=== PATIENT | female | born 1990 | race Caucasian/White ===

== ENCOUNTER 2017-10-08 07:31 | Emergency (ER) | payer MEDICAID ==
[~2017-10-08] VITALS: Ht 160 cm; Wt 65.5 kg
[2017-10-08 07:48] VITALS: BP 107/57
--- NOTE | 2017-10-08 08:00 | NUR ---
PATIENT PRESENTS TO ED WITH c/o rhinorrhea, productive cough-yellow phlegm, x 6 days bilateral ear pain x last night---denies drainage exudate ---16 wks iup; OB hx---denies rx--- vitamins, robitussin, tylenol; DENIES N/V/D; SKIN IS PINK/WARM/DRY; AAOX4 WITH EVEN AND STEADY GAIT; LUNGS CLEAR BL; HR EVEN AND REGULAR; PT DENIES ANY FEVER, CP, SOB, OR COUGH AT THIS TIME; PATIENT STATES PAIN OF 8/10 AT THIS TIME; VSS; PATIENT POSITIONED FOR COMFORT; HOB ELEVATED; BEDRAILS UP X2; BED DOWN. ER MD MADE AWARE OF PT STATUS.
--- NOTE | 2017-10-08 08:02 | NUR ---
DR PACHECO EVALUATING AAO PT AT BEDSIDE
--- NOTE | 2017-10-08 08:25 | NUR ---
PT RT EAR IRRIGATED WITH 1/2 NS/HYDROGEN PEROXIDE; PROCEDURE TOLERATED WELL
[2017-10-08] MEDS ORDERED: ACETAMINOPHEN EXTRA STRENGTH 500 MG TAB PO ONE (08:45)
[2017-10-08 09:02] VITALS: BP 109/57
== END 2017-10-08 09:12 | disposition home or self-care (01) ==
LOC: MED 07:31
DX: O26.892 Other specified pregnancy related conditions, second trimester (principal); H66.92 Otitis media, unspecified, left ear; J06.9 Acute upper respiratory infection, unspecified; Z3A.16 16 weeks gestation of pregnancy
CPT/HCPCS: 99283

== ENCOUNTER 2017-10-25 15:20 | Emergency (ER) | payer MEDICAID ==
[~2017-10-25] VITALS: Ht 160 cm; Wt 66.5 kg
[2017-10-25 15:29] VITALS: BP 106/64
--- NOTE | 2017-10-25 15:36 | NUR ---
PATIENT TO OF
--- NOTE | 2017-10-25 15:45 | NUR ---
PATIENT PRESENTS TO ED WITH c/o productive cough, sore throat, head ache, rt ear pain;denies drainage on rt ear; 04/24 since 10/08/17; seen here in er on 10/08, prescribe amoxicillin and tussin with no relief; pt 19 weeks ;denie any medical hx;pt feeld nauseous but denies vomitting; SKIN IS PINK/WARM/DRY; AAOX4 WITH EVEN AND STEADY GAIT;HR EVEN AND REGULAR;PATIENT POSITIONED FOR COMFORT; ER MD MADE AWARE OF PT STATUS.
--- NOTE | 2017-10-25 16:11 | NUR ---
Sabrina preston in [facility] - 10/25/17 [address] CRUZ AT [facility].
--- NOTE | 2017-10-25 16:11 | NUR ---
DR CRUZ EVALUATING PT.
[2017-10-25 16:50] VITALS: BP 112/65
--- NOTE | 2017-10-25 16:50 | NUR ---
Patient discharged with v/s stable. Written and verbal after care instructions given and explained. Patient alert, oriented and verbalized understanding of instructions. Ambulatory with steady gait. All questions addressed prior to discharge. ID band removed. Patient advised to follow up with PMD. Rx of PROMETHAZINE given. Patient educated on indication of medication including possible reaction and side effects. Opportunity to ask questions provided and answered.
== END 2017-10-25 16:50 | disposition home or self-care (01) ==
LOC: MED 15:20
DX: O26.892 Other specified pregnancy related conditions, second trimester (principal); J06.9 Acute upper respiratory infection, unspecified
CPT/HCPCS: 99283

== ENCOUNTER 2018-02-05 03:52 | Observation (INO) | payer MEDICAID ==
[~2018-02-05] VITALS: Ht 160 cm; Wt 75.3 kg
[2018-02-05] MEDS ORDERED: TYLENOL 500 MG (06:17)
[2018-02-05] MEDS ORDERED: PREN-546 PO (06:17)
== END 2018-02-05 06:30 | disposition home or self-care (01) ==
LOC: MLD 03:52
PROVIDERS: ADMIT Obstetrics & Gynecology; ATTEND Obstetrics & Gynecology
DX: O26.893 Other specified pregnancy related conditions, third trimester (principal); R07.0 Pain in throat; H92.03 Otalgia, bilateral; Z3A.31 31 weeks gestation of pregnancy
CPT/HCPCS: 59025; 81000; G0378

== ENCOUNTER 2018-02-05 06:37 | Emergency (ER) | payer MEDICAID ==
[~2018-02-05] VITALS: Ht 160 cm; Wt 75.3 kg
[~2018-02-05 06:37] MED LIST: PREN-546 PO; TYLENOL 500 MG
[2018-02-05 06:39] VITALS: BP 126/83
--- NOTE | 2018-02-05 06:42 | NUR ---
PATIENT AMBULATED TO ER BED 11.
--- NOTE | 2018-02-05 06:57 | NUR ---
27Y/F C/O BL EAR PAIN AND HEADACHE. PT STATES SHE HAS BEEN SICK "WITH EVERYTHING" FOR 2 WEEKS W/ WORSENING PAIN THE LAST 4 DAYS. PT C/O SORETHROAT, HEADACHE, BL EAR PAIN, RUNNY NOSE, AND COUGH. RR EVEN, UNLABORED,BL BS CLEAR THROUGHOUT. PT IS 34 WEEKS , 4 PARA 3. PT DENIES N/V/D, VAGINAL BLEEDING/ DISCHARGE, OR ABD DISCOMFORT AT THIS TIME. PT IS CLEARED FROM L&D AND BROUGHT TO ED. PT AA&OX4, LAYING IN BED, MOTHER AT BEDSIDE, PT IN APPARENT DISTRESS AT THIS TIME. NO PMH, NKA. Addendum: 02/05/18 at 0707 by MEDWL PT TOOK TYLNOL AT 1130PM LAST NIGHT W/ MINIMAL RELIEF.
--- NOTE | 2018-02-05 07:13 | NUR ---
Pt report given to SHARON. Transfer of care at this time.
[2018-02-05 07:35] VITALS: BP 120/78
--- NOTE | 2018-02-05 07:35 | NUR ---
Patient discharged with v/s stable. Written and verbal after care instructions given and explained. Patient alert, oriented and verbalized understanding of instructions. Ambulatory with steady gait. All questions addressed prior to discharge. ID band removed. Patient advised to follow up with PMD. Rx of SUDAFED given. Patient educated on indication of medication including possible reaction and side effects. Opportunity to ask questions provided and answered.
--- NOTE | 2018-02-07 13:37 | NUR ---
PATIENT THROAT CULTURE RETURNED AT THIS TIME. NEGATIVE FOR ALL STREP AND PATHOGENS. NO FURTHER ACTION TAKEN.
== END 2018-02-05 07:35 | disposition home or self-care (01) ==
LOC: MED 06:37
DX: O99.513 Diseases of the respiratory system complicating pregnancy, third trimester (principal); J06.9 Acute upper respiratory infection, unspecified; Z3A.34 34 weeks gestation of pregnancy
CPT/HCPCS: 36415; 87081; 87804; 99284

== ENCOUNTER 2018-08-26 00:46 | Emergency (ER) | payer MEDICAID ==
[~2018-08-26] VITALS: Ht 157.5 cm; Wt 66.2 kg
[2018-08-26 00:52] VITALS: BP 123/56
[2018-08-26] MEDS ORDERED: NACL 0.9% 1,000 ML IV SCH (01:06)
[2018-08-26] MEDS ORDERED: MORPHINE SULFATE 2 MG/ML SYR IVP ONE (01:10)
[2018-08-26] MEDS ORDERED: ONDANSETRON 4 MG/2 ML VIAL IVP ONE (01:10)
[2018-08-26] MEDS ORDERED: ONDANSETRON 4 MG/2 ML VIAL ONE (01:22)
[2018-08-26] MEDS ORDERED: MORPHINE SULFATE 4 MG/ML SYR ONE ×2 (01:22→01:38)
[2018-08-26 01:31] LABS: HEMATOCRIT 45.4 % (36-48); HEMOGLOBIN 15.1 g/dL (12.0-16.0); MEAN CORPUSCULAR HEMOGLOBIN 29 pg (27-31); MEAN CORPUSCULAR HGB CONC 33 g/dL (33-37); MEAN CORPUSCULAR VOLUME 87.6 fL (80-94); PLATELET COUNT (AUTO) 364 K/uL (140-450); RED BLOOD CELL COUNT(AUTO) 5.19 MIL/uL (4.20-5.40); RED CELL DISTRIBUTION WIDTH 12.7 % (11.6-13.7); WHITE BLOOD COUNT (AUTO) 21.1 K/uL (4.8-10.8)
[2018-08-26 02:02] LABS: LYMPHOCYTES % (MANUAL) 7 % (20-46); MONOCYTES % (MANUAL) 4 % (5-12)
[2018-08-26 02:03] LABS: POTASSIUM 4.1 mmol/L (3.5-5.1)
[2018-08-26 02:04] LABS: ALBUMIN 4.1 g/dL (3.4-5.0); ANION GAP 13.3 (8-16); CARBON DIOXIDE 28.8 mmol/L (21-32); CREATININE 0.8 mg/dL (0.6-1.3); TOTAL BILIRUBIN 0.8 mg/dL (0.0-1.0)
[2018-08-26 02:35] LABS: APPEARANCE,URINE SLIGHTLY HAZY (CLEAR); COLOR,URINE YELLOW (YELLOW)
[2018-08-26 02:36] LABS: BILIRUBIN,URINE NEGATIVE (NEGATIVE); BLOOD, URINE NEGATIVE (NEGATIVE); LEUKOCYTE ESTERASE ,URINE NEGATIVE (NEGATIVE); NITRITE, URINE NEGATIVE (NEGATIVE); UGLUCOSE NEGATIVE (NEGATIVE)
[2018-08-26 02:38] LABS: RBC,URINE 0-5 (RARE) /HPF (0-5)
[2018-08-26 03:31] VITALS: BP 129/78
== END 2018-08-26 03:31 | disposition home or self-care (01) ==
LOC: MED 00:46
DX: N39.0 Urinary tract infection, site not specified (principal); Z79.899 Other long term (current) drug therapy
CPT/HCPCS: 36415; 80053; 81001; 81025; 82150; 83690; 84703; 85025; 87086; 96361; 96374; 96375; 99285; J2270; J2405; J7030

== ENCOUNTER 2021-01-08 23:56 | Emergency (ER) | payer MEDICAID, OTHER ==
[~2021-01-08] VITALS: Ht 160 cm; Wt 60.3 kg
[2021-01-09 00:02] VITALS: BP 119/85
--- NOTE | 2021-01-09 00:08 | NUR ---
PT AMBULATED TO BED #12
[2021-01-09] MEDS ORDERED: PROCHLORPERAZINE 10 MG/2 ML VIAL IM ONE (00:20)
[2021-01-09] MEDS ORDERED: KETOROLAC 60 MG/2 ML VIAL IM ONE (00:20)
[2021-01-09] MEDS ORDERED: diphenhydrAMINE 50 MG/ML VIAL IM ONE (00:20)
--- NOTE | 2021-01-09 00:27 | NUR ---
ERMD AT BEDSIDE EXAMINING PT
--- NOTE | 2021-01-09 00:30 | NUR ---
30 Y/O FEMALE CAME TO THE ED WITH 10/ HEADACHE AND VOMITINGX4 TODAY. DENIES N/V/D; SKIN IS PINK/WARM/DRY; AAOX4 WITH EVEN AND STEADY GAIT; LUNGS CLEAR BL; HR EVEN AND REGULAR; PT DENIES ANY FEVER, CP, SOB, OR COUGH AT THIS TIME; VSS; PATIENT POSITIONED FOR COMFORT; HOB ELEVATED; BEDRAILS UP X2; BED DOWN. ER MD MADE AWARE OF PT STATUS. PMH: DENIES NKA
[2021-01-09 01:07] VITALS: BP 119/85
--- NOTE | 2021-01-09 01:07 | NUR ---
Patient discharged with v/s stable. Written and verbal after care instructions given and explained. Patient verbalized understanding. Ambulatory with steady gait. All questions addressed prior to discharge. Advised to follow up with PMD.
== END 2021-01-09 01:07 | disposition home or self-care (01) ==
LOC: MED 23:56
DX: R51.9 Headache, unspecified (principal)
CPT/HCPCS: 81025; 96372; 99284; J0780; J1200; J1885

== ENCOUNTER 2021-02-16 18:57 | Inpatient (IN) | payer OTHER, SELFPAY ==
[~2021-02-16] VITALS: Ht 160 cm; Wt 56.7 kg
[2021-02-16 19:23] VITALS: BP 101/42
--- NOTE | 2021-02-16 20:02 | NUR ---
30 Y/O FEMALE CAME TO ED C/O LOWER BACK PAIN. PT STATES 9/10 PAIN, AND "FEELS WARM AND BURNING I PEE". PT STATES THAT SHE ALSO HAS NAUSEA/VOMITTING, DIARRHEA, FEVER. SKIN IS PINK/WARM/DRY; AAOX4 WITH EVEN AND STEADY GAIT; LUNGS CLEAR BL; HR EVEN AND REGULAR; PT DENIES ANY CP, SOB, OR COUGH AT THIS TIME; PATIENT POSITIONED FOR COMFORT; HOB ELEVATED; BEDRAILS UP X2; BED DOWN. ER MD MADE AWARE OF PT STATUS. NKA PMH: DENIES
[2021-02-16] MEDS ORDERED: NACL 0.9% 1,000 ML IV ONE ×2 (20:05→22:45)
[2021-02-16] MEDS ORDERED: ONDANSETRON 4 MG/2 ML VIAL IVP ONE (20:05)
[2021-02-16] MEDS ORDERED: KETOROLAC 30 MG/ML VIAL IVP ONE (20:05)
[2021-02-16 20:20] LABS: APPEARANCE,URINE CLEAR (CLEAR); BILIRUBIN,URINE 1+ (NEGATIVE); BLOOD, URINE 1+ (NEGATIVE); COLOR,URINE YELLOW (YELLOW); LEUKOCYTE ESTERASE ,URINE 1+ (NEGATIVE); NITRITE, URINE NEGATIVE (NEGATIVE); UGLUCOSE NEGATIVE (NEGATIVE)
[2021-02-16 20:27] LABS: HEMATOCRIT 39.3 % (36-48); HEMOGLOBIN 13.1 g/dL (12.0-16.0); MEAN CORPUSCULAR HEMOGLOBIN 29 pg (27-31); MEAN CORPUSCULAR HGB CONC 33 g/dL (33-37); MEAN CORPUSCULAR VOLUME 87.9 fL (80-94); PLATELET COUNT (AUTO) 281 K/uL (140-450); RED BLOOD CELL COUNT(AUTO) 4.46 MIL/uL (4.20-5.40); RED CELL DISTRIBUTION WIDTH 13.3 % (11.6-13.7); WHITE BLOOD COUNT (AUTO) 23.8 K/uL (4.8-10.8)
[2021-02-16 20:36] LABS: WBC,URINE 16-25 (MOD) /HPF (0-5)
[2021-02-16 20:44] LABS: LYMPHOCYTES % (MANUAL) 6 % (20-46); MONOCYTES % (MANUAL) 6 % (5-12)
[2021-02-16 20:50] LABS: ALBUMIN 3.5 g/dL (3.4-5.0); ANION GAP 14.2 (8-16); CARBON DIOXIDE 23.9 mmol/L (21-32); CREATININE 0.9 mg/dL (0.6-1.3); POTASSIUM 3.1 mmol/L (3.5-5.1); TOTAL BILIRUBIN 1.4 mg/dL (0.0-1.0)
[2021-02-16] MEDS ORDERED: cefTRIAXone 1,000 MG VIAL ONE ×2 (20:51→21:00)
--- NOTE | 2021-02-16 21:07 | NUR ---
PT TAKEN TO CT
--- NOTE | 2021-02-16 22:37 | NUR ---
COLLECTED CALEB SWAB AND SENT TO LAB, HANDED TO CPT HEMA
[2021-02-16] MEDS ORDERED: MORPHINE SULFATE 4 MG/ML SYR IVP ONE (22:45)
[2021-02-16] MEDS ORDERED: KCL 20 MEQ/WATER INJ PREMIX 100 ML IV ONE (23:30)
[2021-02-16] MEDS ORDERED: MORPHINE SULFATE 2 MG/ML SYR IVP PRN (23:55)
--- NOTE | 2021-02-17 01:04 | NUR ---
SPOKE W/ OPAL FROM ALLIED , INVESTIGATIONS MANAGER, UPDATED HER ON PT CLINICALS. PER OPAL OKAY TO ADMIT PATIENT.
--- NOTE | 2021-02-17 01:10 | NUR ---
RECEIVED CALL FROM ER NURSE FOR REPORT. WAITING PATIENT ARRIVE TO UNIT.
--- NOTE | 2021-02-17 01:15 | NUR ---
Patient will be admitted to care of DR. PARRISH. [facility]. Will go to room 105A. Belongings list completed. Report to PATRICIA HARDIN.
[2021-02-17 01:30] VITALS: BP 101/56
--- NOTE | 2021-02-17 01:30 | NUR ---
PATIENT ARRIVED UNIT BY WHEELCHAIR. PATIENT AMBULATES TO BED WITH STEADY GAIT INDEPENDENTLY. DX PYELONEPHRITIS. C/C RIGHT FLANK PAIN, FEVER, N/V AND DIARRHEA. ADMIT TO MED SURG UNIT. PATIENT A/A/O X4. RESPIRATORY EVEN AND UNLABORED, ON ROOM AIR, NO SIGN OF RESPIRATORY DISTRESS NOTED, LUNG SOUNDS CLEAR TO AUSCULTATES TO ALL LOBES. ABDOMEN SOFT, NON-TENDER, BOWEL SOUND ACTIVE, LAST BM WAS YESTERDAY WITH DIARRHEA. SKIN WARM, DRY, INTACT, NON-DIAPHORETIC. IV ON LEFT AC 20G, INTACT AND PATENT, IS INFUSING FLUID. PATIENT DENIES ANY PAIN OR DISCOMFORT AT THIS TIME. ABLE TO MAKE NEEDS KNOWN. VS TAKEN. MRSA SWAB COLLECTED. ORIENTED TO UNIT AND ROOM. PLAN OF CARE DISCUSSED. PATIENT VERBALIZED UNDERSTANDING. CALL LIGHT WITHIN REACH. WILL CONTINUE TO MONITOR.
[2021-02-17] MEDS: NACL 0.9% 1,000 ML IV SCH ×3 (03:55→17:13)
[2021-02-17 04:00] VITALS: BP 109/64
--- NOTE | 2021-02-17 04:00 | NUR ---
ROUND CHECK. PATIENT IS SLEEPING, CHEST RISE AND FALL NOTED. NO SIGN OF DISTRESS NOTED. CALL LIGHT WITHIN REACH. WILL CONTINUE TO MONITOR.
[2021-02-17] MEDS: ACETAMINOPHEN 325 MG TAB PO PRN ×2 (05:17→13:53)
--- NOTE | 2021-02-17 05:17 | NUR ---
TYLENOL PRN GIVEN WITH EDUCATION FOR FEVER AND PAIN. PATIENT VERBALIZED UNDERSTANDING. PATIENT TOLERATED WELL. CALL LIGHT WITHIN REACH. WILL CONTINUE TO MONITOR.
--- NOTE | 2021-02-17 06:17 | NUR ---
PAIN RE ASSESSMENT. PATIENT REPORTS PAIN DOES NOT REDUCE. WILL CONTACT MD FOR ANOTHER PAIN MEDICATION SINCE PATIENT BLOOD PRESSURE IS LOW.
[2021-02-17 06:34] LABS: MAGNESIUM 1.7 mg/dL (1.8-2.4); PHOSPHORUS 1.5 mg/dL (2.5-4.9)
[2021-02-17 06:37] LABS: ANION GAP 12.3 (8-16); CARBON DIOXIDE 23.3 mmol/L (21-32); CREATININE 0.8 mg/dL (0.6-1.3); POTASSIUM 3.6 mmol/L (3.5-5.1)
--- NOTE | 2021-02-17 06:40 | NUR ---
PAGED MD TO NOTIFY PATIENT CONDITION. WAITING FOR CALL BACK.
--- NOTE | 2021-02-17 06:45 | NUR ---
RECEIVED CALL FROM DR GOODMAN, TORADOL 15MG IVP Q6H PRN FOR PAIN. READ BACK ORDER. WILL FOLLOW ORDER.
[2021-02-17 06:53] LABS: HEMOGLOBIN 11.4 g/dL (12.0-16.0); MEAN CORPUSCULAR HEMOGLOBIN 29 pg (27-31); MEAN CORPUSCULAR HGB CONC 33 g/dL (33-37); MEAN CORPUSCULAR VOLUME 89.7 fL (80-94); PLATELET COUNT (AUTO) 241 K/uL (140-450); RED CELL DISTRIBUTION WIDTH 13.6 % (11.6-13.7); WHITE BLOOD COUNT (AUTO) 17.7 K/uL (4.8-10.8)
[2021-02-17 06:59] LABS: LYMPHOCYTES % (MANUAL) 6 % (20-46); MONOCYTES % (MANUAL) 6 % (5-12)
--- NOTE | 2021-02-17 07:05 | NUR ---
ENDORSED PATIENT TO AM NURSE FOR CONTINUITY OF CARE. PATIENT IS STABLE. COMPLAINS OF PAIN, ENDORSED TO AM NURSE REGARDING NEW ORDER TORADOL PRN FOR PAIN.
--- NOTE | 2021-02-17 07:05 | NUR ---
REC'D REPORT FROM FINANCIAL MARKET DEALER NURSE, PT A/OX4, KOREAN SPEAKING, RA. AMBULATORY, LUNGS CLEAR, ABD SOFT, NONTENDER. R. FLANK TENDER.NO EDEMA NOTED ON EXTREMITIES. R.AC 20G INFUSING NS AT 125M;/HR, NO SIGN OF PHLEBITIS, DRY, CLEAN , PATENT. PT C/O PAIN, WILL MEDICATE. ALL SAFETY MEASURES IN PLACE. WILL CONTINUE TO MONITOR
[2021-02-17] MEDS: KETOROLAC 15 MG/ML VIAL IVP PRN ×2 (07:52→16:51)
--- NOTE | 2021-02-17 07:55 | NUR ---
ADMINISTERED ANALGESIC PER MD ORDER, MOA AND SIDE EFFECTS DISCUSSED WITH PT WHO VERBALIZED UNDERSTANDING. IV SITE DRY, CLEAN, INTACT, PATENT. WILL CONTINUE TO MONITOR
[2021-02-17 08:00] VITALS: BP 103/62
--- NOTE | 2021-02-17 08:33 | NUR ---
DC PLANNIN YRS OLD FEMALE PATIENT WAS ADMITTED FROM HOME WITH A DX OF PYELONEPHRITIS. PT HAS A HX OF COVID AND RECEIVED COVID VACCINE. CT ABD SHOWED NO OBSTRUCTIVE UROPATHY, HEPATOMEGALY. RAPID COVID TEST NEGATIVE. WBC 23.8 ADMINISTERED IVF, IV ABX ROCEPHIN AND TORADOL IV FOR PAIN. WBC WENT DOWN TO 17.7 . DC PLAN TO GO HOME WHEN STABLE CM TO FOLLOW Addendum: 02/18/21 at 1141 by Juju Moreno CM DC PROCESSING SUPERVISOR: CALLED TO SCHEDULE PATIENT A FOLLOW UP APPOINTMENT WITH PCP BESSIE HARRISON [phone], HOWEVER THEY STATED THE PATIENT HAS TO CALL THEMSELVES TO SCHEDULE.
--- NOTE | 2021-02-17 08:55 | NUR ---
PATIENT HAS BEEN SCREENED AND CATEGORIZED HIGH NUTRITION RISK. PATIENT WILL BE SEEN WITHIN 1-2 DAYS OF ADMISSION. FNS REFERRAL WAS RECEIVED FOR NAUSEA AND DIARRHEA >3 DAYS. 02/17/21-02/18/[address]
[2021-02-17] MEDS: ENOXAPARIN 30 MG/0.3 ML SYR SUBQ SCH (09:48)
--- NOTE | 2021-02-17 11:00 | NUR ---
PATIENT SITTING ON BED AND TAKING ON PHONE WITH FAMILY MEMBER .PATIENT VERBALIZED NO NEED AT THIS TIME WILL CONTINUE TO MONITOR PATIENT.
--- NOTE | 2021-02-17 13:38 | NUR ---
RECOMMENDED BLAND DIET, RECEIVED TORB FROM DR. GALLEGOS FOR BLAND DIET.
[2021-02-17] MEDS: ONDANSETRON 4 MG/2 ML VIAL IVP PRN (13:48)
--- NOTE | 2021-02-17 13:54 | NUR ---
02/17/21 RD INITIAL ASSESSMENT COMPLETED PLEASE REFER TO NUTRITION ASSESSMENT UNDER CARE ACTIVITY FOR ESTIMATED NUTRITIONAL NEEDS. 1. RECOMMENDED BLAND DIET TOLERATED 2. ENCOURAGE PO INTAKE OVER 75% 3. RD TO FOLLOW-UP 3-5 DAYS, MODERATE RISK PHI REES, RD
[2021-02-17 16:00] VITALS: BP 107/61
--- NOTE | 2021-02-17 16:55 | NUR ---
TORADOL 1 ML ADMINISTER PRE MD ORDERED FOR HEADACHE 06/25. PATIENT TOLERATED WELL . WILL CONTINUE TO MONITOR PATIENT .
--- NOTE | 2021-02-17 19:39 | NUR ---
ENDORSED PT TO [facility] SHIFT NURSE, PT STABLE, NO SIGN OF DISTRESS.
--- NOTE | 2021-02-17 19:40 | NUR ---
RECD. RESTING IN BED, AWAKE, A/OX4. RESPIRATION EVEN AND UNLABORED. IV OF NS AT 75 ML/HR INFUSING, LEFT AC G20. AMBULATORY TO THE BR. AWARE OF PLAN TO MEASURE ACCURATELY INTAKE AND OUTPUT. MEDICATIONS AND PLAN OF CARE FOR THE SHIFT DISCUSSED. VERBALIZED UNDERSTANDING. DENIES PAIN 0/10.
[2021-02-17 20:00] VITALS: BP 110/60
--- NOTE | 2021-02-17 20:00 | NUR ---
PATIENTS' PLAN OF CARE WAS REVIEWED AND DISCUSSED WITH DIRECTOR DATA ARCHITECTURE: LORRIE KARIMI
--- NOTE | 2021-02-17 21:00 | NUR ---
RESTING IN BED, WARM BLANKETS GIVEN REQUESTED.
[2021-02-17] MEDS: HYDROcodone/APAP 5/325 MG 1 TAB TAB PO PRN (22:52)
--- NOTE | 2021-02-17 22:52 | NUR ---
FEELING COLD, TEMPERATURE CHECKED - 99.7 F. WITH BACK PAIN 03/25, MEDICATION GIVEN PER MD ORDER.
[2021-02-18] VITALS: BP 116/71
[2021-02-18] MEDS ORDERED: ZOLPIDEM 5 MG TAB PO PRN (01:15)
--- NOTE | 2021-02-18 02:08 | NUR ---
UNABLE TO SLEEP, MEDICATED WITH AMBIEN PER MD ORDER.
--- NOTE | 2021-02-18 03:08 | NUR ---
SLEEPING COMFORTABLY IN BED.
[2021-02-18 04:00] VITALS: BP 126/77
--- NOTE | 2021-02-18 05:00 | NUR ---
REMAIN AFEBRILE, TEMPERATURE - 98.2 F.
--- NOTE | 2021-02-18 06:00 | NUR ---
STILL SLEEPING COMFORTABLY IN BED.
[2021-02-18 06:06] LABS: ANION GAP 8.5 (8-16); CARBON DIOXIDE 25.2 mmol/L (21-32); CREATININE 0.6 mg/dL (0.6-1.3); POTASSIUM 3.7 mmol/L (3.5-5.1)
[2021-02-18 06:11] LABS: BASOPHILS % (AUTO) 0.2 % (0.0-2.0); EOSINOPHILS # (AUTO) 0.1 K/uL (0-0.4); EOSINOPHILS % (AUTO) 0.7 % (0.0-4.0); HEMOGLOBIN 10.4 g/dL (12.0-16.0); LYMPHOCYTES # (AUTO) 1.9 K/uL (2.5-16.5); LYMPHOCYTES % (AUTO) 15.8 % (20.5-51.1); MEAN CORPUSCULAR HEMOGLOBIN 30 pg (27-31); MEAN CORPUSCULAR HGB CONC 34 g/dL (33-37); MEAN CORPUSCULAR VOLUME 87.7 fL (80-94); MONOCYTES # (AUTO) 1.2 K/uL (0.8-1.0); MONOCYTES % (AUTO) 10.4 % (1.7-9.3); NEUTROPHILS # (AUTO) 8.7 K/uL (1.8-7.7); NEUTROPHILS % (AUTO) 72.9 % (42.2-75.2); PLATELET COUNT (AUTO) 222 K/uL (140-450); RED BLOOD CELL COUNT(AUTO) 3.54 MIL/uL (4.20-5.40); RED CELL DISTRIBUTION WIDTH 13.4 % (11.6-13.7); WHITE BLOOD COUNT (AUTO) 11.9 K/uL (4.8-10.8)
--- NOTE | 2021-02-18 07:15 | NUR ---
NO FEVER NOTED DURING THE SHIFT. COMPLAINT OF BACK PAIN ATTENDED PROMPTLY, MEDICATED PER MD ORDER. ENDORSED TO AM SHIFT NURSE FOR CONTINUITY OF CARE.
[2021-02-18 08:00] VITALS: BP 135/87
[2021-02-18] MEDS: NACL 0.9% 1,000 ML IV SCH ×2 (08:47→22:27)
[2021-02-18] MEDS: ACETAMINOPHEN 325 MG TAB PO PRN (09:06)
[2021-02-18] MEDS: HYDROcodone/APAP 5/325 MG 1 TAB TAB PO PRN (09:06)
[2021-02-18] MEDS: ENOXAPARIN 30 MG/0.3 ML SYR SUBQ SCH (09:15)
--- NOTE | 2021-02-18 09:15 | NUR ---
PT WAS GIVEN THE SCHEDULED AM MEDICATIONS NOW, VIA SUBQ ON THE RT DELTOID AND ORAL, WAS MEDICATED WELL FOR C/O PAIN OF 03/25, WILL RE-ASSESS AND MONITOR PT.
--- NOTE | 2021-02-18 09:45 | NUR ---
ULTRASOUND OF THE GALLBLADDER IS BEING DONE TO PT NOW.
--- NOTE | 2021-02-18 10:44 | NUR ---
PT WAS STARTED ON MAGNESIUM RIDER IV NOW FOR MG LEVEL OF 1.7
[2021-02-18] MEDS ORDERED: MAG SULF 2000 MG/WATER PREMIX 50 ML IV SCH (11:00)
[2021-02-18] MEDS: IBUPROFEN 600 MG TAB PO SCH ×2 (11:14→17:45)
--- NOTE | 2021-02-18 11:14 | NUR ---
SCHEDULED IBUPROFEN WAS GIVEN TO PT NOW.
--- NOTE | 2021-02-18 11:52 | NUR ---
SOCIAL WORK NOTE: Patient's Orientation Unable To Assess Information Provided By BERT CHILD - Comments SW WAS UNABLE TO MEET PATIENT AT BEDSIDE. SW COMPLETED ASSESSMENT WITH PATIENT'S . SW USED COURT WORKER TIM [id number]. Evaluator, Realtionship and Phone Number BERT CHILD [phone] Healthcare Power of Checking Clerk No Does Patient Have a POLST No Identifying Problems No Social Work Triggers Is A Social Work Consult Needed No Mandate Report Filed No Explanation Of Identifying Problems PATIENT IS A 30-YEAR-OLD MALE ADMITTED FOR PYELONEPHRITIS. PATIENT HAS NO REPORTED PMHX. REPORTED NO HX OR MENTAL HEALTH OR SUBSTANCE ABUSE HX. Admitted From Home Pre-Admission Level Of Functioning Status Independent/Ambulatory Prior Resources/Services Used In Last 12 Months No Prior Resources Used Prior DME No Prior DME Used Dialysis Comments N/A Living Situation Lives With Family House Patient Had Caregiver No Home Support No Caregiver Issues Financial Issues No Known Financial Issue Referral To The Financial Counselor Needed No Factors/Needs No D/C Needs Identified Pt/Rep Participated In Discharge Plan Yes Patient/Family Agress With Discharge Plan Yes Discharge Plan Comments TENTATIVE DISCHARGE PLAN IS FOR PATIENT TO RETURN HOME. DC Plan Status Initiated
--- NOTE | 2021-02-18 13:33 | NUR ---
PT IS RESTING NOW, SEATED ON THE BED AND TALKING ON HER CP.
--- NOTE | 2021-02-18 17:46 | NUR ---
PT WAS GIVEN THE SCHEDULED MEDICATION, WILL MONITOR P,T.
--- NOTE | 2021-02-18 19:20 | NUR ---
ENDORSED PT TO COUNSELING AIDE NURSE FOR CONTINUITY OF CARE.
[2021-02-18 20:00] VITALS: BP 107/71
--- NOTE | 2021-02-18 20:00 | NUR ---
PATIENT WAS RECEIVED ALERT AND COHERENT SPEAKS BOT JAPANESE AND SRI LANKAN, DENIES PAIN AT THIS TIME, NO S/S OF DISTRESS.
--- NOTE | 2021-02-18 20:20 | NUR ---
RN MADE A VISIT IN 105 B PATIENT, BED A PATIENT WAS OBSERVED TO BE ALERT AND COHERENT, ABLE TO SPEAK NEEDS , HELPED RN TO TRANSLATE VIETNAMESE TO [place] AND VISE [place] WITH PATIENT IN BED B.
--- NOTE | 2021-02-18 20:40 | NUR ---
PATIENT ASSESSMENT WAS DONE VITAL SIGNS WNL
--- NOTE | 2021-02-18 21:00 | NUR ---
RN ADMINISTER THE DUE MEDICATION, ROCEPHIN 1GM IVPB
--- NOTE | 2021-02-18 22:15 | NUR ---
PATIENT C/O OF PRESSURE PAIN IN HER HEAD AND LOWER BACK 04/24
[2021-02-18] MEDS: KETOROLAC 15 MG/ML VIAL IVP PRN (22:20)
--- NOTE | 2021-02-18 22:21 | NUR ---
TORADOL 15 MG IVP WAS GIVEN
--- NOTE | 2021-02-19 00:45 | NUR ---
RN MADE HIS MIDNIGHT ROUND PATIENT WAS CALMLY ASLEEP NO S/S OF DISTRESS.
[2021-02-19 04:00] VITALS: BP 137/88
[2021-02-19] MEDS: KETOROLAC 15 MG/ML VIAL IVP PRN ×2 (05:43→12:08)
[2021-02-19] MEDS: HYDROcodone/APAP 5/325 MG 1 TAB TAB PO PRN (06:24)
[2021-02-19 06:28] LABS: BASOPHILS % (AUTO) 0.3 % (0.0-2.0); EOSINOPHILS # (AUTO) 0.1 K/uL (0-0.4); EOSINOPHILS % (AUTO) 1.2 % (0.0-4.0); HEMATOCRIT 33.1 % (36-48); HEMOGLOBIN 11.2 g/dL (12.0-16.0); LYMPHOCYTES # (AUTO) 1.6 K/uL (2.5-16.5); LYMPHOCYTES % (AUTO) 21.4 % (20.5-51.1); MEAN CORPUSCULAR HEMOGLOBIN 30 pg (27-31); MEAN CORPUSCULAR HGB CONC 34 g/dL (33-37); MEAN CORPUSCULAR VOLUME 88.6 fL (80-94); MONOCYTES # (AUTO) 0.8 K/uL (0.8-1.0); MONOCYTES % (AUTO) 10.2 % (1.7-9.3); NEUTROPHILS # (AUTO) 5.1 K/uL (1.8-7.7); NEUTROPHILS % (AUTO) 66.9 % (42.2-75.2); PLATELET COUNT (AUTO) 295 K/uL (140-450); RED BLOOD CELL COUNT(AUTO) 3.74 MIL/uL (4.20-5.40); RED CELL DISTRIBUTION WIDTH 13.5 % (11.6-13.7); WHITE BLOOD COUNT (AUTO) 7.6 K/uL (4.8-10.8)
[2021-02-19 07:07] LABS: ALBUMIN 2.5 g/dL (3.4-5.0); ANION GAP 9.6 (8-16); CARBON DIOXIDE 25.6 mmol/L (21-32); CREATININE 0.5 mg/dL (0.6-1.3); MAGNESIUM 2.3 mg/dL (1.8-2.4); POTASSIUM 3.2 mmol/L (3.5-5.1); TOTAL BILIRUBIN 0.3 mg/dL (0.0-1.0)
--- NOTE | 2021-02-19 07:54 | NUR ---
REPORTS WERE GIVEN TO INCOMING RN, CARE OF PATIENT WAS ENDORSED.
--- NOTE | 2021-02-19 08:10 | NUR ---
PATIENT IS AOX4, RESPIRATIONS EVEN AND UNLABORED ON ROOM AIR, VITAL SIGNS STABLE. PATIENT REPORTS PAIN IS TOLERABLE AT THIS TIME. IV FLUIDS INFUSING. TOLERATING BLAND DIET WELL WITH NO NAUSEA/VOMITING. REPORTS FEELING CONSTIPATED, LAST BM 02/16. URINATING FREELY WITH NO COMPLAINTS OF PAIN. SKIN IS INTACT. UPDATED PATIENT ON PLAN OF CARE. WILL CONTINUE TO MONITOR.
[2021-02-19] MEDS: IBUPROFEN 600 MG TAB PO SCH ×2 (08:59→12:00)
[2021-02-19] MEDS: ENOXAPARIN 30 MG/0.3 ML SYR SUBQ SCH (09:00)
--- NOTE | 2021-02-19 09:15 | NUR ---
SPOKE TO DR. GALLEGOS. NOTIFIED OF POTASSIUM 3.2 AND C/O CONSTIPATION. RECEIVED ORDERS.
[2021-02-19] MEDS ORDERED: POTASSIUM CHLORIDE 10 MEQ TABER PO SCH (10:00)
[2021-02-19] MEDS ORDERED: LACTULOSE 20 GM/30 ML UDC PO SCH (10:00)
[2021-02-19] MEDS ORDERED: IBUP-2213 PO (10:33)
[2021-02-19] MEDS ORDERED: CEPH500C16 PO (10:33)
[2021-02-19] MEDS: ONDANSETRON 4 MG/2 ML VIAL IVP PRN (12:05)
[2021-02-19] MEDS: NACL 0.9% 1,000 ML IV SCH (12:07)
--- NOTE | 2021-02-19 12:15 | NUR ---
PATIENT C/O NAUSEA AND VOMITING. PRN ZOFRAN GIVEN. REPORTS PAIN IN RIGHT FLANK RATED 7/10. PRN MEDICATION GIVEN.
[2021-02-19 12:27] VITALS: BP 119/80
[2021-02-19] MEDS ORDERED: ACET-8386 PO (12:32)
--- NOTE | 2021-02-19 13:20 | NUR ---
PATIENT REPORTS FEELING "MUCH BETTER". SITTING UP IN BED EATING SANDWICH, TOLERATING WELL WITH NO NAUSEA/VOMITING. PAIN IS WELL UNDER CONTROL AT THIS TIME.
--- NOTE | 2021-02-19 14:20 | NUR ---
DISCHARGE PAPERWORK REVIEWED WITH PATIENT, PATIENT UNDERSTANDS NEW MEDICATIONS/SIDE EFFECTS/ SIGNS AND SYMPTOMS TO WATCH OUT FOR. IV REMOVED WITH CATHETER TIP INTACT.
== END 2021-02-19 15:50 | disposition home or self-care (01) | DRG 720 ==
LOC: MED 18:57 → MTU 23:55
PROVIDERS: ADMIT Hospitalist; ATTEND Hospitalist
DX: A41.9 Sepsis, unspecified organism (principal); E83.42 Hypomagnesemia; N10 Acute pyelonephritis; E87.6 Hypokalemia; Z98.51 Tubal ligation status; Z20.822 Contact with and (suspected) exposure to COVID-19
CPT/HCPCS: 36415; 71046; 74018; 76705; 80048; 80053; 81001; 83605; 83690; 83735; 84100; 85025; 85610; 87040; 87081; 87086; 96365; 96375; 99291; J0696; J1650; J1885; J2270; J2405; J3475; J3480; J7060

== ENCOUNTER 2024-06-24 21:05 | Inpatient (IN) | payer MEDICAID, OTHER ==
[~2024-06-24] VITALS: Ht 160 cm; Wt 62.6 kg
[~2024-06-24 21:05] MED LIST changes: +ACET-8905 PO; +CEPH500C16 PO; +IBUP-2213 PO; -PREN-546 PO; -TYLENOL 500 MG
[2024-06-24 21:31] VITALS: BP 104/75; PULSE 91; RESP 20; TEMP 98.7; O2SAT 96
[2024-06-24 22:20] LABS: APPEARANCE,URINE CLEAR (CLEAR); BILIRUBIN,URINE NEGATIVE (NEGATIVE); BLOOD, URINE TRACE-I (NEGATIVE); COLOR,URINE YELLOW (YELLOW); LEUKOCYTE ESTERASE ,URINE NEGATIVE (NEGATIVE); NITRITE, URINE NEGATIVE (NEGATIVE); PROTEIN,URINE NEGATIVE (NEGATIVE); UGLUCOSE NEGATIVE (NEGATIVE); UROBILINOGEN,URINE 0.2 EU/dL (0.2 - 1)
[2024-06-24 22:23] LABS: BASOPHILS % (AUTO) 0.3 % (0.0-2.0); EOSINOPHILS # (AUTO) 0.1 K/uL (0-0.4); HEMATOCRIT 37.3 % (36-48); HEMOGLOBIN 12.1 g/dL (12.0-16.0); LYMPHOCYTES # (AUTO) 2.5 K/uL (2.5-16.5); LYMPHOCYTES % (AUTO) 23.6 % (20.5-51.1); MEAN CORPUSCULAR HEMOGLOBIN 28 pg (27-31); MEAN CORPUSCULAR HGB CONC 32 g/dL (33-37); MONOCYTES # (AUTO) 0.7 K/uL (0.8-1.0); NEUTROPHILS # (AUTO) 7.3 K/uL (1.8-7.7); NEUTROPHILS % (AUTO) 68.1 % (42.2-75.2); PLATELET COUNT (AUTO) 317 K/uL (140-450); RED BLOOD CELL COUNT(AUTO) 4.39 MIL/uL (4.20-5.40); RED CELL DISTRIBUTION WIDTH 14.4 % (11.6-13.7); WHITE BLOOD COUNT (AUTO) 10.7 K/uL (4.8-10.8)
[2024-06-24 22:34] LABS: BACTERIA,URINE FEW /HPF (None Seen); MUCUS,URINE None Seen /LPF (None Seen); RBC,URINE 0-5 /HPF (0-5); SQUAMOUS EPITHELIAL CELL,UR 0-3 (FEW) /LPF (0-3 (FEW)); WBC,URINE 0-5 /HPF (0-5)
[2024-06-24 22:37] LABS: ANION GAP 9.5 (8-16); CALCIUM 9.2 mg/dL (8.5-10.1); CARBON DIOXIDE 28.4 mmol/L (21-32); CREATININE 0.7 mg/dL (0.6-1.3); POTASSIUM 3.9 mmol/L (3.5-5.1)
[2024-06-24 22:40] LABS: ALBUMIN 3.4 g/dL (3.4-5.0); BILIRUBIN,DIRECT 0.1 mg/dL (0.0-0.3); TOTAL BILIRUBIN 0.4 mg/dL (0.0-1.0)
[2024-06-24] MEDS: NACL 0.9% 1,000 ML IV ONE (23:03)
[2024-06-24] MEDS: ONDANSETRON 4 MG/2 ML VIAL IVP ONE (23:55)
[2024-06-24] MEDS: MORPHINE SULFATE 4 MG/ML SYR IVP ONE (23:57)
[2024-06-24] MEDS ORDERED: MORPHINE SULFATE 4 MG/ML SYR ONE (23:59)
[2024-06-24] MEDS ORDERED: ONDANSETRON 4 MG/2 ML VIAL ONE (23:59)
[2024-06-25] MEDS ORDERED: PIPERACILLIN/TAZOBACTAM 3.375 GM VIAL IV ONE (02:45)
[2024-06-25] MEDS: PIPERACILLIN/TAZOBACTAM 3.375 GM in DEXTROSE 5% 50 ML IV ONE (02:51)
[2024-06-25] MEDS ORDERED: MORPHINE SULFATE 4 MG/ML SYR ONE (03:55)
[2024-06-25] MEDS: MORPHINE SULFATE 4 MG/ML SYR IVP ONE (04:07)
[2024-06-25] MEDS ORDERED: ONDANSETRON 4 MG/2 ML VIAL IVP PRN (06:05)
[2024-06-25] MEDS ORDERED: ACETAMINOPHEN 325 MG TAB PO PRN (06:05)
[2024-06-25 08:00] VITALS: BP 104/56; PULSE 59; RESP 20; TEMP 97.2; O2SAT 98
[2024-06-25] MEDS: MORPHINE SULFATE 2 MG/ML SYR IVP PRN (09:29)
[2024-06-25 09:44] VITALS: PULSE 59; RESP 20; O2SAT 99
[2024-06-25] MEDS: DEXT 5% /NACL 0.9% 1,000 ML IV SCH (10:34)
[2024-06-25 10:55] LABS: BASOPHILS % (AUTO) 0.4 % (0.0-2.0); EOSINOPHILS # (AUTO) 0.1 K/uL (0-0.4); EOSINOPHILS % (AUTO) 1.5 % (0.0-4.0); HEMATOCRIT 37.8 % (36-48); HEMOGLOBIN 12.4 g/dL (12.0-16.0); LYMPHOCYTES # (AUTO) 2.2 K/uL (2.5-16.5); LYMPHOCYTES % (AUTO) 29.2 % (20.5-51.1); MEAN CORPUSCULAR HEMOGLOBIN 28 pg (27-31); MEAN CORPUSCULAR HGB CONC 33 g/dL (33-37); MONOCYTES # (AUTO) 0.6 K/uL (0.8-1.0); MONOCYTES % (AUTO) 7.5 % (1.7-9.3); NEUTROPHILS # (AUTO) 4.5 K/uL (1.8-7.7); NEUTROPHILS % (AUTO) 61.4 % (42.2-75.2); PLATELET COUNT (AUTO) 282 K/uL (140-450); RED BLOOD CELL COUNT(AUTO) 4.45 MIL/uL (4.20-5.40); RED CELL DISTRIBUTION WIDTH 14.4 % (11.6-13.7); WHITE BLOOD COUNT (AUTO) 7.4 K/uL (4.8-10.8)
[2024-06-25 11:21] LABS: ANION GAP 8.8 (8-16); CALCIUM 8.6 mg/dL (8.5-10.1); CARBON DIOXIDE 27.9 mmol/L (21-32); CREATININE 0.6 mg/dL (0.6-1.3); POTASSIUM 3.7 mmol/L (3.5-5.1); TOTAL BILIRUBIN 0.8 mg/dL (0.0-1.0); TOTAL PROTEIN, SERUM 6.4 g/dL (6.4-8.2)
[2024-06-25] MEDS: PIPERACILLIN/TAZOBACTAM 3.375 GM in DEXTROSE 5% 50 ML IV SCH (12:28)
[2024-06-25] MEDS: HYDROcodone/APAP 5/325 MG 1 TAB TAB PO PRN (12:30)
[2024-06-25] MEDS ORDERED: MAG SULF 2000 MG/WATER PREMIX 50 ML IV PRN (14:50)
[2024-06-25] MEDS ORDERED: KCL 20 MEQ IN 100 mL PREMIX 200 ML IV PRN (14:50)
[2024-06-25 15:59] VITALS: BP 97/60; PULSE 52; RESP 20; TEMP 97; O2SAT 98
[2024-06-25 20:00] VITALS: BP 106/60; PULSE 72; PULSE 85; RESP 18; TEMP 97.8; O2SAT 98
[2024-06-25] MEDS: KETOROLAC 30 MG/ML VIAL IVP ONE (21:27)
[2024-06-26 05:43] LABS: BASOPHILS % (AUTO) 0.4 % (0.0-2.0); EOSINOPHILS # (AUTO) 0.1 K/uL (0-0.4); EOSINOPHILS % (AUTO) 1.7 % (0.0-4.0); HEMOGLOBIN 11.9 g/dL (12.0-16.0); LYMPHOCYTES % (AUTO) 26.4 % (20.5-51.1); MEAN CORPUSCULAR HEMOGLOBIN 28 pg (27-31); MEAN CORPUSCULAR HGB CONC 33 g/dL (33-37); MEAN CORPUSCULAR VOLUME 85.2 fL (80-94); MONOCYTES # (AUTO) 0.5 K/uL (0.8-1.0); MONOCYTES % (AUTO) 7.1 % (1.7-9.3); NEUTROPHILS # (AUTO) 4.8 K/uL (1.8-7.7); NEUTROPHILS % (AUTO) 64.4 % (42.2-75.2); PLATELET COUNT (AUTO) 304 K/uL (140-450); RED BLOOD CELL COUNT(AUTO) 4.23 MIL/uL (4.20-5.40); RED CELL DISTRIBUTION WIDTH 14.4 % (11.6-13.7); WHITE BLOOD COUNT (AUTO) 7.4 K/uL (4.8-10.8)
[2024-06-26 06:07] LABS: ALBUMIN 2.7 g/dL (3.4-5.0); CALCIUM 7.9 mg/dL (8.5-10.1); CARBON DIOXIDE 25.8 mmol/L (21-32); CREATININE 0.7 mg/dL (0.6-1.3); MAGNESIUM 1.9 mg/dL (1.8-2.4); PHOSPHORUS 3.5 mg/dL (2.5-4.9); TOTAL BILIRUBIN 0.8 mg/dL (0.0-1.0); TOTAL PROTEIN, SERUM 5.8 g/dL (6.4-8.2)
[2024-06-26 07:34] LABS: ANION GAP 11.2 (8-16)
[2024-06-26 08:00] VITALS: BP 104/61; PULSE 60; PULSE 61; RESP 18; TEMP 97; O2SAT 98
[2024-06-26 11:05] VITALS: BP 104/61; PULSE 60; RESP 18; TEMP 97
[2024-06-26] MEDS ORDERED: PANT40EC PO (13:39)
== END 2024-06-26 13:25 | disposition home or self-care (01) ==
LOC: MED 21:05 → MTU 06-25 06:03 → MMU 06-25 07:59
PROVIDERS: ADMIT Student in an Organized Health Care Education/Training Program; ATTEND Student in an Organized Health Care Education/Training Program
DX: K82.0 Obstruction of gallbladder (principal); Z79.899 Other long term (current) drug therapy
CPT/HCPCS: 36415; 76700; 78445; 80048; 80053; 80076; 81001; 83690; 83735; 84100; 84703; 85025; 87040; 87081; 96361; 96365; 96375; 99285; A9510; J1885; J2270; J2405; J2543; J7060